=== PATIENT | male | born 2000 | race Caucasian/White ===

== ENCOUNTER 2021-12-02 14:14 | Inpatient (IN) | payer MEDICAID ==
[~2021-12-02] VITALS: Ht 167.6 cm; Wt 90.8 kg
[2021-12-02] MEDS ORDERED: LORAZEPAM 2MG/ML CPJ IV ONE ×2 (14:45→17:00)
[2021-12-02] MEDS ORDERED: LEVETIRACETAM 1000MG PREMIX 100 ML IV ONE (14:45)
[2021-12-02] MEDS ORDERED: SODIUM CHLORIDE 0.9% 1,000 ML IV ONE (15:00)
[2021-12-02 15:08] LABS: BASOPHILS % 0.2 % (0.0-2.0); HEMATOCRIT. 41.6 % (42.0-52.0); HEMOGLOBIN. 14.4 g/dL (14.0-18.0); LYMPHOCYTES % 16.9 % (20.0-50.0); MEAN CORPUSCULAR HEMOGLOBIN 30.5 pg (28.0-32.0); MEAN CORPUSCULAR VOLUME 88.1 fL (80.0-94.0); MEAN PLATELET VOLUME 6.8 fl (7.4-10.4); MONOCYTES % 6.5 % (2.0-8.0); NEUTROPHILS % 74.4 % (40.0-76.0); PLATELET 322 x1000/uL (130-400); RED BLOOD CELL COUNT 4.72 mill/uL (4.7-6.1); RED CELL DISTRIBUTION WIDTH 12.8 % (11.6-14.6)
[2021-12-02 15:30] LABS: CHLORIDE 109 mEq/L (98-107)
[2021-12-02 15:37] LABS: CREATINE KINASE 179 IU/L (39-308); ETHANOL BLOOD < 10 mg/dL
[2021-12-02] MEDS ORDERED: DOCUSATE SODIUM 100MG CAPSULE PO PRN (17:00)
[2021-12-02] MEDS ORDERED: ZOLPIDEM TARTRATE 5MG TABLET PO PRN (17:00)
[2021-12-02] MEDS ORDERED: ONDANSETRON HCL 4MG/2ML INJ IV PRN (17:00)
[2021-12-02] MEDS ORDERED: CLONIDINE 0.1MG TABLET PO PRN (17:00)
[2021-12-02] MEDS ORDERED: MAGNESIUM/ALUMINUM HYDROXIDE/SIMETHICONE 30ML UDC PO PRN (17:00)
[2021-12-02] MEDS ORDERED: GUAIFENESIN 200MG/10ML SUGAR FREE UDC PO PRN (17:00)
[2021-12-02] MEDS ORDERED: NITROGLYCERIN 0.4MG TABLET SL SL PRN (17:00)
[2021-12-02] MEDS ORDERED: LORAZEPAM 2MG/ML CPJ IV PRN (17:00)
[2021-12-02] MEDS ORDERED: ACETAMINOPHEN 325MG TABLET PO PRN ×2 (17:00)
[2021-12-02] MEDS ORDERED: KETOROLAC 15MG/ML VIAL IV PRN (17:00)
[2021-12-02] MEDS ORDERED: IPRATROPIUM/ALBUTEROL 0.5-3(2.5)MG/3ML NEB NEB PRN (17:00)
[2021-12-02 17:35] LABS: CLARITY URINE CLEAR (CLEAR); COLOR URINE YELLOW (YELLOW); KETONES URINE NEGATIVE (NEGATIVE); LEUKOCYTE ESTERASE URINE NEGATIVE (NEGATIVE); NITRITE URINE NEGATIVE (NEGATIVE); OCCULT BLOOD URINE NEGATIVE (NEGATIVE); PH URINE 7.5 (4.5-8.0); PROTEIN URINE NEGATIVE (NEGATIVE); SPECIFIC GRAVITY URINE 1.007 (1.005-1.030); UROBILINOGEN URINE 0.2 E.U./dL (0.2-1.0)
[2021-12-02 17:43] LABS: *AMPHETAMINES SCREEN URINE NEGATIVE (NEGATIVE); *BARBITURATES SCREEN URINE NEGATIVE (NEGATIVE); *BENZODIAZEPINES SCREEN URINE NEGATIVE (NEGATIVE); *COCAINE SCREEN URINE NEGATIVE (NEGATIVE); CANNABINOID URINE SCREEN NEGATIVE (NEGATIVE); METHADONE URINE SCREEN NEGATIVE (NEGATIVE); OPIATES URINE SCREEN NEGATIVE (NEGATIVE); PHENCYCLIDINE URINE SCREEN NEGATIVE (NEGATIVE)
[2021-12-02 18:12] LABS: VITAMIN B12 SERUM 346 pg/mL (211-911)
[2021-12-02 18:14] LABS: FOLIC ACID (FOLATE) SERUM > 20.00 ng/mL (>5.38)
[2021-12-02] MEDS: ENOXAPARIN 30MG/0.3ML SYR SUBCUT SCH (18:26)
[2021-12-02] MEDS: LEVETIRACETAM 500MG TABLET PO SCH (21:17)
[2021-12-02] MEDS: FAMOTIDINE 20MG TABLET PO SCH (21:17)
[2021-12-02 23:52] LABS: CREATINE KINASE 163 IU/L (39-308); CREATINE KINASE MB FRACTION < 1.0 ng/mL (0.5-3.6)
[2021-12-03 00:40] VITALS: BP 139/85
[2021-12-03 00:50] VITALS: BP 139/85
[2021-12-03] MEDS ORDERED: LAMO100T16 MT (01:14)
[2021-12-03] MEDS ORDERED: TOPI25TA48 MT (01:14)
[2021-12-03] MEDS: ENOXAPARIN 30MG/0.3ML SYR SUBCUT SCH ×2 (06:12→17:54)
[2021-12-03 07:24] LABS: BASOPHILS % 0.3 % (0.0-2.0); EOSINOPHILS % 2.1 % (0.0-5.0); HEMATOCRIT. 39.8 % (42.0-52.0); HEMOGLOBIN. 14.2 g/dL (14.0-18.0); LYMPHOCYTES % 24.7 % (20.0-50.0); MEAN CORPUSCULAR HEMOGLOBIN 31.1 pg (28.0-32.0); MEAN CORPUSCULAR VOLUME 87.1 fL (80.0-94.0); MEAN PLATELET VOLUME 7.1 fl (7.4-10.4); MONOCYTES % 7.6 % (2.0-8.0); NEUTROPHILS % 65.3 % (40.0-76.0); PLATELET 314 x1000/uL (130-400); RED BLOOD CELL COUNT 4.57 mill/uL (4.7-6.1); RED CELL DISTRIBUTION WIDTH 12.8 % (11.6-14.6)
[2021-12-03 07:36] LABS: CHLORIDE 109 mEq/L (98-107)
[2021-12-03 07:42] LABS: CREATINE KINASE 136 IU/L (39-308); CREATINE KINASE MB FRACTION < 1.0 ng/mL (0.5-3.6)
[2021-12-03 07:49] LABS: PHOSPHORUS 3.8 mg/dL (2.5-4.9)
[2021-12-03 08:00] VITALS: BP 138/71
[2021-12-03] MEDS: FAMOTIDINE 20MG TABLET PO SCH ×2 (08:49→20:35)
[2021-12-03] MEDS: LEVETIRACETAM 500MG TABLET PO SCH ×2 (08:49→20:36)
[2021-12-03] MEDS ORDERED: POTASSIUM CHLORIDE 20MEQ/PACKET PO NR (10:00)
[2021-12-03] MEDS: LAMOTRIGINE 100MG TABLET PO SCH ×2 (10:43→20:35)
[2021-12-03 12:00] VITALS: BP 148/73
[2021-12-03] MEDS: TOPIRAMATE 100MG TABLET PO SCH ×2 (12:15→20:35)
[2021-12-03 16:00] VITALS: BP 146/77
[2021-12-03 20:00] VITALS: BP 129/83
[2021-12-04] VITALS: BP 125/81
[2021-12-04 04:00] VITALS: BP 139/74
[2021-12-04] MEDS: ENOXAPARIN 30MG/0.3ML SYR SUBCUT SCH (05:51)
[2021-12-04 08:00] VITALS: BP 143/81
[2021-12-04] MEDS: FAMOTIDINE 20MG TABLET PO SCH (09:27)
[2021-12-04] MEDS: TOPIRAMATE 100MG TABLET PO SCH (09:27)
[2021-12-04] MEDS: LEVETIRACETAM 500MG TABLET PO SCH (09:27)
[2021-12-04] MEDS: LAMOTRIGINE 100MG TABLET PO SCH (11:11)
[2021-12-04 12:00] VITALS: BP 133/78
[2021-12-04] MEDS ORDERED: POTASSIUM CHLORIDE 20MEQ TABLET SR PO NR (12:15)
== END 2021-12-04 15:20 | disposition left against medical advice (07) | DRG 53 ==
LOC: EDBD 14:21 → ER 14:21 → EDBEDREQTM 15:56 → EDBEDREQ 15:56 → 7WST 16:37 → EDBEDREQTM 16:47 → EDBEDREQ 16:47 → ENRESERV 23:33
PROVIDERS: ADMIT Internal Medicine; ATTEND Internal Medicine
DX: G40.909 Epilepsy, unspecified, not intractable, without status epilepticus (principal); Z53.29 Procedure and treatment not carried out because of patient's decision for other reasons
CPT/HCPCS: 36415; 70486; 71045; 73562; 80053; 80305; 80320; 81003; 82550; 82553; 82607; 82746; 83540; 83550; 83735; 84100; 84443; 84484; 85025; 93005; 93970; 99291; J1650; J1953; J2060; G0480